=== PATIENT | male | born 1980 | race Two or more races ===

== ENCOUNTER → 2020-04-30 | Emergency (ER) | payer OTHER ==
[~2020-04-30] VITALS: Ht 182.9 cm; Wt 145.1 kg
[~2020-04-30] MED LIST: BACTRIM DS TAB1 EACH PO; PERCOCET 5-3251 EACH PO; SEPTRA DS TABLE1 TAB PO; TAMS0.4C PO; ULTRACET PO
== END | disposition home or self-care (01) ==
LOC: ER 04:18
DX: N20.1 Calculus of ureter (principal); N20.0 Calculus of kidney

== ENCOUNTER 2020-09-01 15:46 | Emergency (ER) | payer OTHER ==
[~2020-09-01] VITALS: Ht 185.4 cm; Wt 145.1 kg
[2020-09-01] MEDS ORDERED: COZAAR25 MG PO (15:57)
== END 2020-09-01 20:22 | disposition home or self-care (01) ==
LOC: ER 15:46
DX: N20.0 Calculus of kidney (principal); R10.31 Right lower quadrant pain